=== PATIENT | female | born 1960 | race Caucasian/White ===

== ENCOUNTER 2017-08-09 06:25 | Emergency (ER) | payer OTHER ==
[~2017-08-09] VITALS: Ht 167.6 cm; Wt 63.5 kg
[2017-08-09 06:51] VITALS: BP 120/66
--- NOTE | 2017-08-09 07:05 | PHYS DOC ---
Past History Past Medical History: No Pertinent History Past Surgical History: No Surgical History Alcohol Use: None Drug Use: None Adult General Chief Complaint Chief Complaint: multiple HPI HPI Patient is a 49-year-old female who presents with her . They just returned from a 2 week vacation in [place] last night. She states she didn't get much sleep last night. Her has been sick for 4 days with a viral upper respiratory infection. Her symptoms began this morning when she woke up, but since he was coming in she thought she would get checked to the patient has had achiness across her upper back into her shoulders and neck. The left side of her neck aches and she feels like there is a swollen lymph node. She has nasal congestion. She has a sore and scratchy throat. She denies fever. Patient is in good general health. She takes bioidentical hormones. Patient has not yet had her flu shot this season. Review of Systems Review of Systems Constitutional: Denies fever or chills [] Eyes: Denies change in visual acuity, redness, or eye pain [] HENT: As in history of present illness Respiratory: Denies cough or shortness of breath [] Physical Exam Physical Exam Constitutional: Well developed, well nourished, no acute distress, non-toxic appearance. Alert, mentating normally, warm and dry, vital signs stable. HENT: Normocephalic, atraumatic, bilateral external ears normal, bilateral TMs normal, oropharynx moist, no oral exudates, mild erythema of the posterior pharynx. Eyes: conjunctiva normal, no discharge. [] Neck: Normal range of motion, no tenderness, supple, no stridor. No palpable masses or lymphadenopathy. Cardiovascular:Heart rate regular rhythm, no murmur [] Lungs & Thorax: Bilateral breath sounds clear to auscultation [] Skin: Warm, dry, no erythema, no rash. [] Extremities: No tenderness, no cyanosis, no clubbing, ROM intact, no edema. [] Neurologic: Alert and oriented X 3, normal motor function, no focal deficits noted. [] Current Patient Data Vital Signs Vital Signs Date Time Temp Pulse Resp B/P (MAP) Pulse Ox O2 Delivery O2 Flow Rate FiO2 08/09/17 06:51 98.4 82 18 120/66 (84) 98 08/09/17 06:51 98.0 EKG EKG [] Radiology/Procedures Radiology/Procedures [] Course & Med Decision Making Course & Med Decision Making Pertinent Labs and Imaging studies reviewed. (See chart for details) 57-year-old female presents to the ED with her who is about 4 days and to a viral upper respiratory illness with conjunctivitis. It sounds like she is starting to get a viral syndrome, likely the same one he has. We discussed symptom relief and the importance of good handwashing and avoiding spread of the virus. See instructions for plan. [] Dragon Disclaimer Dragon Disclaimer This chart was dictated in whole or in part using Voice Recognition software in a busy, high-work load, and often noisy Emergency Department environment. It may contain unintended and wholly unrecognized errors or omissions. Departure Departure: Impression: Primary Impression: Viral upper respiratory tract infection Disposition: 01 HOME, SELF-CARE Condition: STABLE Patient Instructions: Upper Respiratory Infection, Adult, [id number] Additional Instructions: Your symptoms and exam are consistent with a viral upper respiratory infection. I recommend [id number] symptom relievers. Take acetaminophen (brand name Tylenol) or ibuprofen (brand name Advil, Motrin) for fever, aches, headache. Take decongestants for nasal and ear congestion. You may use oral decongestants such as pseudoephedrine and/or nasal decongestant such as Afrin or Edilson- Synephrine. These may be combined if needed. This illness is very contagious. Please stay home until you're better to avoid spreading. Good handwashing with soap and water. Disinfect surfaces in the home. Avoid exposing other people. GRABIEL TAMEZ MD Aug 09, 2017 07:05
[2017-08-09] MEDS ORDERED: ONDANSETRON ODT 4 MG TAB.RAPDIS PO ONE (07:15)
== END 2017-08-09 07:15 | disposition home or self-care (01) ==
LOC: ER 06:25
DX: J06.9 Acute upper respiratory infection, unspecified (principal); M54.89 Other dorsalgia; M54.2 Cervicalgia
CPT/HCPCS: 99282; Q0162